=== PATIENT | female | born 1990 | race African-American/Black ===

== ENCOUNTER 2019-03-19 10:28 | Emergency (ER) | payer OTHER ==
[~2019-03-19] VITALS: Ht 162.6 cm; Wt 99.8 kg
[2019-03-19] MEDS ORDERED: SODIUM CHLORIDE 0.9% 1000ML 1,000 ML IV STA (10:37)
[2019-03-19] MEDS ORDERED: IBUPROFEN 600 MG TAB PO ONE (11:00)
[2019-03-19] MEDS ORDERED: ONDANSETRON HCL INJ 2MG/ML 2ML 2 MG/ML VIAL IV ONE (11:00)
[2019-03-19 11:30] LABS: PREGNANCY TEST, URINE NEGATIVE (NEGATIVE)
--- NOTE | 2019-03-19 12:01 | NUR ---
NO IV ACCESS OBTAINED OF YET
[2019-03-19 12:17] LABS: BASOPHILS % 0.4 % (0.0-1.0); EOSINOPHILS % 0.2 % (0.0-6.0); HEMATOCRIT 30.1 % (34.2-44.1); HEMOGLOBIN 8.8 g/dL (12.0-16.0); LYMPHOCYTES # (AUTO) 0.8 (1.0-3.2); LYMPHOCYTES % 13.6 % (18.0-39.1); MEAN CORPUSCULAR HEMOGLOBIN 19.2 pg (28-32); MEAN CORPUSCULAR HGB CONC 29.2 g/dL (31-35); MEAN CORPUSCULAR VOLUME 65.7 fL (81-99); MONOCYTES # (AUTO) 0.4 (0.2-0.8); MONOCYTES % 7.3 % (4.4-11.3); NEUTROPHILS # (AUTO) 4.3 (2.1-6.9); NEUTROPHILS % 78.1 % (38.7-80.0); PLATELET COUNT 348 x10e3/uL (140-360); RED BLOOD COUNT 4.58 x10e6/uL (3.6-5.1); RED CELL DISTRIBUTION WIDTH 17.7 % (11.7-14.4)
--- NOTE | 2019-03-19 12:37 | NUR ---
IV ACCESS OBTAINED AND MEDS GIVEN
[2019-03-19 12:53] LABS: ALANINE AMINOTRANSFERASE 10 IU/L (0-55); ALBUMIN 3.5 g/dL (3.5-5.0); ALBUMIN/GLOBULIN RATIO 0.8 (0.8-2.0); ALKALINE PHOSPHATASE 71 IU/L (40-150); AMYLASE 51 U/L (25-125); ANION GAP 11.9 mmol/L (8-16); BLOOD UREA NITROGEN 7 mg/dL (7-26); BUN/CREATININE RATIO 7 (6-25); CALCIUM 9.5 mg/dL (8.4-10.2); CARBON DIOXIDE 24 mmol/L (22-29); CHLORIDE 102 mmol/L (98-107); CREATININE, SERUM 0.97 mg/dL (0.57-1.11); EST GLOMERULAR FILTRATION RATE > 60 ML/MIN (60-); GLUCOSE 92 mg/dL (74-118); MAGNESIUM 2.1 MG/DL (1.3-2.1); POTASSIUM 3.9 mmol/L (3.5-5.1); SODIUM 134 mmol/L (136-145)
[2019-03-19 15:09] LABS: BILIRUBIN,URINE NEGATIVE (NEGATIVE); CLARITY,URINE SL CLOUDY (CLEAR); COLOR,URINE YELLOW (YELLOW); KETONES,URINE NEGATIVE (NEGATIVE); LEUKOCYTE ESTERASE ,URINE NEGATIVE (NEGATIVE); NITRITE,URINE NEGATIVE (NEGATIVE); PROTEIN,URINE DIPSTICK 1+ (NEGATIVE); URINE UROBILINOGEN 2 mg/dL (0.2 - 1)
[2019-03-19] MEDS ORDERED: AZITHROMYCIN 250 MG TAB PO ONE (15:15)
[2019-03-19] MEDS ORDERED: CEFTRIAXONE SOD 1 GM/NS 50 ML 50 ML IV ONE (15:15)
[2019-03-19 15:32] LABS: BACTERIA,URINE FEW /HPF; EPITHELIAL CELLS,URINE FEW /LPF
--- NOTE | 2019-03-19 15:36 | Diagnostic Imaging Report ---
Chest, 2 views, 03/19/2019. History: Fever and vomiting. Comparison: None available. Findings: The cardiomediastinal silhouette and pulmonary vasculature are within normal limits. The lungs are clear without evidence of consolidation or pleural effusion. There are no acute osseous or soft tissue abnormalities. Impression: No acute cardiopulmonary abnormality. Signed by: Noe Henson on 03/19/2019 3:33 PM
[2019-03-19] MEDS ORDERED: ZOFRAN4 MG PO (15:52)
[2019-03-19] MEDS ORDERED: ZOFRAN4 MG SL (15:52)
== END 2019-03-19 16:40 | disposition home or self-care (01) ==
LOC: ER 10:31
DX: R10.9 Unspecified abdominal pain (principal); R11.2 Nausea with vomiting, unspecified; R19.7 Diarrhea, unspecified; J45.909 Unspecified asthma, uncomplicated
CPT/HCPCS: 36415; 71046; 80053; 81001; 81025; 82150; 83735; 85025; 87086; 99284; J2405; J7030

== ENCOUNTER 2020-05-16 10:08 | Emergency (ER) | payer SELFPAY ==
[~2020-05-16] VITALS: Ht 162.6 cm; Wt 99.8 kg
[~2020-05-16 10:08] MED LIST: ZOFRAN4 MG PO; ZOFRAN4 MG SL
--- OUTSIDE RECORDS SUMMARY | 2020-05-16 10:25 | XMS REPORT | Continuity of Care Document ---
Author Author [facility] Organization [facility] Address [address] [place] [address] Phone Unavailable Care Team Providers Care Helper Maintenance Cleaning Name Role Phone NO, PCP PCP Unavailable JERED BARGER Attraf Unavailable Problems This patient has no known problems. Allergies, Adverse Reactions, Alerts Allergy Name Allergy Type Status Severity Reaction(s) Onset Date Inacti ve Date Treating Clinician Comments Source Penicillin Allergy to Substance Active Severe 2019-03-19 00:00:00 [facility] Medications Ordered Medication Name Filled Medication Name Start Date Stop Da te Current Medication? Ordering Clinician Indication Dosage Frequency Signature (SIG) Comments Components Source Ondansetron Hcl (Zofran*) 4 Mg Tablet Ondansetron Hcl (Zofra n*) 4 Mg Tablet 2019-03-19 00:00:00 Yes Lamont Galarza Furniture Refinisher 4 Every 4 Hours as needed for Nausea And Vomiting [facility] Ondansetron Hcl (Zofran*) 4 Mg Tablet Ondansetron Hcl (Zofra n*) 4 Mg Tablet 2019-03-19 00:00:00 Yes Lamont Galarza Furniture Refinisher 4 Every 4 Hours as needed for Nausea [facility] Procedures Procedure Date / Time Performed Performing Clinician [facility] e X-ray of chest, two views 2019-03-19 00:00:00 LAMONT GALARZA [facility] Encounters Start Date/Time End Date/Time Encounter Type Admission Type Attendi [facility] Facility Care Department Encounter ID Source 2019-03-19 10:31:00 2019-03-19 16:40:00 Departed Emergency Room [address] [facility] [id number] [facility] Results Test Description Test Time Test Comments Results Result Comments Source Urine WBC 2019-03-19 15:32:00 Test Item Urine WBC (test code = 5821-4) NONE 0-5 [facility] [id number] 15:32:00* Test Item Value Reference Range Interpretation Comments Urine RBC (test code = 27233-7) 6-10 0-5 H [facility] Njldrdki8515-52-65 15:32:00* Test Item Value Reference Range Interpretation Comments Urine Bacteria (test code = 28405-1) FEW NONE [facility] Epithelial Bzwdg0759-26-20 15:32:00 * Test Item Value Reference Range Interpretation Comments Urine Epithelial Cells (test code = 18096-7) FEW NONE [facility] 2 [id number] 15:32:00 [facility] [address] [address] Patient Name: ERIC WHITESIDE MR #: [id number] : 1990 Age/Sex: 28/F Req #: [id number] Adm Physician: Ordered by: LAMONT GALARZA MAINTENANCE OPERATOR Report #: [id number] Location: ER Room/Bed: Procedure: [id number] D X/CHEST 2 VIEWS Exam Date: 03/19/19 Exam Time: 1433 REPORT STATUS: Signed Chest, 2 v iews, 03/19/2019. History: Fever and vomiting. Comparison: None available. Findings: The cardiomediastinal silhouette and pulmonary vascul ature are within normal limits. The lungs are clear without evidence of consol idation or pleural effusion. There are no acute osseous or soft tissue abnorm alities. Impression: No acute cardiopulmonary abnormality. Signed by: Noe Henson on 03/19/2019 3:33 PM Dictated By: NOE HENSON MD El ectronically Signed By: NOE HENSON MD on 03/19/19 1533 Transcribed By: LEDY DE LA O on 03/19/19 1533 COPY TO: LAMONT GALARZA MAINTENANCE OPERATOR Urine Color 2019-03-19 15:16:00* Test Item Value Reference Range Interpretation Comments Urine Color (test code = 5778-6) YELLOW YELLOW [facility] Rajhtgz9027-29-25 15:16:00* Test Item Value Reference Range Interpretation Comments Urine Clarity (test code = 39138-8) SL CLOUDY CLEAR [facility] HospitalU[facility] Specific Cthuikg8373-21-19 15:16:00 * Test Item Value Reference Range Interpretation Comments Urine Specific Tye (test code = 5811-5) 1.020 1.010-1.02 5 [facility] [id number] 15:16:00* Test Item Value Reference Range Interpretation Comments Urine pH (test code = 64873-8) 7 5-7 [facility] Leukocyte Zjiadpjh9778-76-62 15:16:00* Test Item Value Reference Range Interpretation Comments Urine Leukocyte Esterase (test code = 52593-4) NEGATIVE NEGATIV E [facility] HospitalU[facility] Eqofjzz6277-86-34 15:16:00* Test Item Value Reference Range Interpretation Comments Urine Nitrite (test code = 71918-3) NEGATIVE NEGATIVE [facility] HospitalU[facility] Esrdilo4379-43-18 15:16:00* Test Item Value Reference Range Interpretation Comments Urine Protein (test code = 89929-3) 1+ NEGATIVE H [facility] HospitalU[facility] Glucose (UA)2019-03-19 15:16:00* Test Item Value Reference Range Interpretation Comments Urine Glucose (UA) (test code = 28539-5) NEGATIVE NEGATIVE [facility] Xxajxhc8913-67-27 15:16:00* Test Item Value Reference Range Interpretation Comments Urine Ketones (test code = 85337-7) NEGATIVE NEGATIVE [facility] HospitalU[facility] Oklxinkhxtss8515-16-40 15:16:00* Test Item Value Reference Range Interpretation Comments Urine Urobilinogen (test code = 81269-7) 2 0.2-1 [facility] HospitalU[facility] Pbkkukkcj5582-15-51 15:16:00* Test Item Value Reference Range Interpretation Comments Urine Bilirubin (test code = 1977-8) NEGATIVE NEGATIVE [facility] HospitalU[facility] Qidvt9292-02-45 15:16:00* Test Item Value Reference Range Interpretation Comments Urine Blood (test code = 33455-8) 3+ NEGATIVE [facility] Jbbzs5415-29-00 12:53:00* Test Item Value Reference Range Interpretation Comments Sodium Level (test code = 2951-2) 134 136-145 L [facility] HospitalPotassium Kyvvc4629-34-72 12:53:00* Test Item Value Reference Range Interpretation Comments Potassium Level (test code = 2823-3) 3.9 3.5-5.1 [facility] HospitalChloride Kxtjr5839-56-86 12:53:00* Test Item Value Reference Range Interpretation Comments Chloride Level (test code = 2075-0) 102 98-107 [facility] HospitalCarbon Dioxide Mhwso6389-51-18 12:53:00* Test Item Value Reference Range Interpretation Comments Carbon Dioxide Level (test code = 2028-9) 24 22-29 [facility] HospitalAnion Jao0297-39-82 12:53:00* Test Item Value Reference Range Interpretation Comments Anion Gap (test code = 21565-5) 11.9 8-16 [facility] HospitalBlood Urea Qkurvoff0172-61-86 12:53:00* Test Item Value Reference Range Interpretation Comments Blood Urea Nitrogen (test code = 3094-0) 7 7-26 [facility] HospitalCreatinine2019-09-17 12:53:00* Test Item Value Reference Range Interpretation Comments Creatinine (test code = 2160-0) 0.97 0.57-1.11 [facility] HospitalBUN/Creatinine Voxnz4320-85-04 12:53:00* Test Item Value Reference Range Interpretation Comments BUN/Creatinine Ratio (test code = 3097-3) 7 6-25 [facility] HospitalEstimat Glomerular Filtration Rate 2019-03-19 12:53:00* Test Item Value Reference Range Interpretation Comments Estimat Glomerular Filtration Rate (test code = 910554892) > 60 >60 Ranges were taken from the National Kidney Disease Education Program and the [facility] [employer] literature.Reference ranges:60 or greater: Uggpfn15-45 ( for 3 consecutive months): Chronic kidney disease 15 or less: Kidney failureHarris Health System Lyndon B. Johnson HospitalGlucose Itdbf8574-38-83 12:53:00* Test Item Value Reference Range Interpretation Comments Glucose Level (test code = LKK1278) 92 74-118 [facility] HospitalCalcium Qfrva3757-77-63 12:53:00* Test Item Value Reference Range Interpretation Comments Calcium Level (test code = 21538-3) 9.5 8.4-10.2 [facility] HospitalMagnesium Idten8270-47-60 12:53:00* Test Item Value Reference Range Interpretation Comments Magnesium Level (test code = 86794-1) 2.1 1.3-2.1 [facility] HospitalTotal Wopauudmi0574-27-07 12:53:00* Test Item Value Reference Range Interpretation Comments Total Bilirubin (test code = 1975-2) 0.4 0.2-1.2 [facility] HospitalAspartate Amino Transf (AST/SGOT) 2019-03-19 12:53:00* Test Item Value Reference Range Interpretation Comments Aspartate Amino Transf (AST/SGOT) (test code = Aspartate Amino Transf (AST/SGOT)) 17 5-34 [facility] HospitalAlanine Aminotransferase (ALT/SGPT) 2019-03-19 12:53:00* Test Item Value Reference Range Interpretation Comments Alanine Aminotransferase (ALT/SGPT) (test code = 1742-6) 10 0-55 [facility] HospitalTotal Fdpdbfu2816-63-95 12:53:00* Test Item Value Reference Range Interpretation Comments Total Protein (test code = 2885-2) 7.9 6.5-8.1 [facility] HospitalAlbumin2019-09-17 12:53:00* Test Item Value Reference Range Interpretation Comments Albumin (test code = 1751-7) 3.5 3.5-5.0 [facility] HospitalGlobulin2019-09-17 12:53:00* Test Item Value Reference Range Interpretation Comments Globulin (test code = 00580-7) 4.4 2.3-3.5 H [facility] HospitalAlbumin/Globulin Xlyhz9403-63-58 12:53:00 * Test Item Value Reference Range Interpretation Comments Albumin/Globulin Ratio (test code = 1759-0) 0.8 0.8-2.0 [facility] HospitalAlkaline Kteipbuwled1887-80-62 12:53:00* Test Item Value Reference Range Interpretation Comments Alkaline Phosphatase (test code = 6768-6) 71 40-150 [facility] HospitalAmylase Rgbmk0365-05-30 12:53:00* Test Item Value Reference Range Interpretation Comments Amylase Level (test code = 1798-8) 51 25-125 [facility] HospitalWhite Blood Hdalx8668-08-50 12:23:00* Test Item Value Reference Range Interpretation Comments White Blood Count (test code = 6690-2) 5.50 4.8-10.8 [facility] HospitalRed Blood Iktlg4246-72-31 12:23:00* Test Item Value Reference Range Interpretation Comments Red Blood Count (test code = 789-8) 4.58 3.6-5.1 [facility] HospitalHemoglobin2019-09-17 12:23:00* Test Item Value Reference Range Interpretation Comments Hemoglobin (test code = 53212-5) 8.8 12.0-16.0 L [facility] HospitalHematocrit2019-09-17 12:23:00* Test Item Value Reference Range Interpretation Comments Hematocrit (test code = 4544-3) 30.1 34.2-44.1 L [facility] HospitalMean Corpuscular Crscjs0994-93-91 12:23:00* Test Item Value Reference Range Interpretation Comments Mean Corpuscular Volume (test code = 787-2) 65.7 81-99 L [facility] HospitalMean Corpuscular Mrgjcmygzf6319-30-74 12:23:00* Test Item Value Reference Range Interpretation Comments Mean Corpuscular Hemoglobin (test code = 785-6) 19.2 28-32 L [facility] HospitalMean Corpuscular Hemoglobin Concent 2019-03-19 12:23:00* Test Item Value Reference Range Interpretation Comments Mean Corpuscular Hemoglobin Concent (test code = 786-4) 29.2 31-35 L [facility] HospitalRed Cell Distribution Flifb2212-94-75 12:23:00* Test Item Value Reference Range Interpretation Comments Red Cell Distribution Width (test code = 29463-8) 17.7 11.7 -14.4 H [facility] HospitalPlatelet Wlhvp1520-96-46 12:23:00* Test Item Value Reference Range Interpretation Comments Platelet Count (test code = 777-3) 348 140-360 [facility] HospitalNeutrophils (%) (Auto)2019-03-19 12:23:00 * Test Item Value Reference Range Interpretation Comments Neutrophils (%) (Auto) (test code = 50933-9) 78.1 38.7-80.0 [facility] HospitalLymphocytes (%) (Auto)2019-03-19 12:23:00 * Test Item Value Reference Range Interpretation Comments Lymphocytes (%) (Auto) (test code = 736-9) 13.6 18.0-39.1 L [facility] HospitalMonocytes (%) (Auto)2019-03-19 12:23:00* Test Item Value Reference Range Interpretation Comments Monocytes (%) (Auto) (test code = 5905-5) 7.3 4.4-11.3 [facility] HospitalEosinophils (%) (Auto)2019-03-19 12:23:00 * Test Item Value Reference Range Interpretation Comments Eosinophils (%) (Auto) (test code = 713-8) 0.2 0.0-6.0 [facility] HospitalBasophils (%) (Auto)2019-03-19 12:23:00* Test Item Value Reference Range Interpretation Comments Basophils (%) (Auto) (test code = 706-2) 0.4 0.0-1.0 [facility] HospitalIM GRANULOCYTES %2019-03-19 12:23:00* Test Item Value Reference Range Interpretation Comments IM GRANULOCYTES % (test code = IM GRANULOCYTES %) 0.4 0.0- 1.0 [facility] HospitalNeutrophils # (Auto)2019-03-19 12:23:00* Test Item Value Reference Range Interpretation Comments Neutrophils # (Auto) (test code = 751-8) 4.3 2.1-6.9 [facility] HospitalLymphocytes # (Auto)2019-03-19 12:23:00* Test Item Value Reference Range Interpretation Comments Lymphocytes # (Auto) (test code = 52894-5) 0.8 1.0-3.2 L [facility] HospitalMonocytes # (Auto)2019-03-19 12:23:00* Test Item Value Reference Range Interpretation Comments Monocytes # (Auto) (test code = 742-7) 0.4 0.2-0.8 [facility] HospitalEosinophils # (Auto)2019-03-19 12:23:00* Test Item Value Reference Range Interpretation Comments Eosinophils # (Auto) (test code = 711-2) 0.0 0.0-0.4 [facility] HospitalBasophils # (Auto)2019-03-19 12:23:00* Test Item Value Reference Range Interpretation Comments Basophils # (Auto) (test code = 704-7) 0.0 0.0-0.1 [facility] HospitalAbsolute Immature Granulocyte (auto 2019-03-19 12:23:00* Test Item Value Reference Range Interpretation Comments Absolute Immature Granulocyte (auto (leonel t code = Absolute Immature Granulocyte (auto) 0.02 0-0.1 [facility] HospitalUrine Vjwt2421-97-26 11:30:00* Test Item Value Reference Range Interpretation Comments Urine Test (test code = 2106-3) NEGATIVE NEGATIVE [facility]
[2020-05-16 10:33] LABS: BASOPHILS # (AUTO) 0.1 (0.0-0.1); BASOPHILS % 0.5 % (0.0-1.0); EOSINOPHILS # (AUTO) 0.1 (0.0-0.4); EOSINOPHILS % 0.8 % (0.0-6.0); HEMATOCRIT 30.1 % (34.2-44.1); HEMOGLOBIN 8.4 g/dL (12.0-16.0); LYMPHOCYTES # (AUTO) 2.1 (1.0-3.2); MEAN CORPUSCULAR HEMOGLOBIN 18.4 pg (28-32); MEAN CORPUSCULAR HGB CONC 27.9 g/dL (31-35); MONOCYTES % 8.9 % (4.4-11.3); NEUTROPHILS # (AUTO) 7.6 (2.1-6.9); NEUTROPHILS % 70.2 % (38.7-80.0); PLATELET COUNT 305 x10e3/uL (140-360); RED BLOOD COUNT 4.56 x10e6/uL (3.6-5.1); RED CELL DISTRIBUTION WIDTH 18.3 % (11.7-14.4)
[2020-05-16 10:40] LABS: CLARITY,URINE HAZY (CLEAR); COLOR,URINE YELLOW (YELLOW)
[2020-05-16 10:41] LABS: BILIRUBIN,URINE NEGATIVE (NEGATIVE); KETONES,URINE 1+ (NEGATIVE); LEUKOCYTE ESTERASE ,URINE NEGATIVE (NEGATIVE); NITRITE,URINE NEGATIVE (NEGATIVE); PROTEIN,URINE DIPSTICK 1+ (NEGATIVE); URINE UROBILINOGEN 0.2 mg/dL (0.2 - 1)
--- NOTE | 2020-05-16 10:43 | NUR ---
BEDSIDE ULTRASOUND BY MD D/T LARGE FIRM ABD PALPABLE MASS NOTED. NO FETUS NOTED, CONCERN FOR MASS PER MD, CT ORDERED STAT..
[2020-05-16] MEDS ORDERED: SODIUM CHLORIDE 0.9% 1000ML 1,000 ML IV STA (10:44)
[2020-05-16 10:47] LABS: AMORPHOUS SEDIMENT,URINE FEW (FEW); BACTERIA,URINE FEW /HPF; EPITHELIAL CELLS,URINE FEW /LPF; MUCUS,URINE FEW (RARE); RBC,URINE 0-5 /HPF (0-5); WBC,URINE (MAN) 0-5 /HPF (0-5)
[2020-05-16 10:48] LABS: ALANINE AMINOTRANSFERASE 10 IU/L (0-55); ALBUMIN 3.6 g/dL (3.5-5.0); ALBUMIN/GLOBULIN RATIO 0.8 (0.8-2.0); ALKALINE PHOSPHATASE 55 IU/L (40-150); ANION GAP 13.8 mmol/L (8-16); BLOOD UREA NITROGEN 8 mg/dL (7-26); BUN/CREATININE RATIO 10 (6-25); CALCIUM 9.3 mg/dL (8.4-10.2); CARBON DIOXIDE 22 mmol/L (22-29); CHLORIDE 104 mmol/L (98-107); CREATININE, SERUM 0.79 mg/dL (0.57-1.11); EST GLOMERULAR FILTRATION RATE > 60 ML/MIN (60-); GLUCOSE 94 mg/dL (74-118); POTASSIUM 3.8 mmol/L (3.5-5.1); SODIUM 136 mmol/L (136-145)
--- NOTE | 2020-05-16 11:06 | Emergency Department Note ---
History of Present Illnes History of Present Illness Chief Complaint: Genitourinary History of Present Illness This is a 29 year old female PELVIC PAIN X 3 DAYS. AAOX4. AMBULATORY. NO DISTRESS AT TIME OF TRIAGE. LMP 2 WEEKS AGO, HAS HEAVY PERIODS. AFTER MY PHYSICAL EXAM SHE ALSO REPORTS FEELING FIRM MASS WHICH HAS BEEN GROWING FOR ~1 YEAR - SOME DOCTOR TOLD HER IT WAS JUST MUSCLES Historian: Patient, Family Member Arrival Mode: Car Business Specialist Required: No Onset (how long ago): day(s) Location: PELVIC Quality: PAIN Radiation: Reports non-radiation Severity: mild Onset quality: gradual Timing of current episode: intermittent Progression: waxing and waning Chronicity: new Context: Denies recent illness Relieving factors: none Exacerbating factors: none Associated symptoms: Reports denies other symptoms Past Medical/Family History Physician Review I have reviewed the patient's past medical and family history. Any updates have been documented here. Past Medical History Recent Fever: No Clinical Suspicion of Infectio: Yes New/Unexplained Change in Ment: No Past Medical History: Asthma Past Surgical History: None Social History Smoking Cessation: Never Smoker Counseling Performed: No Alcohol Use: None Any Illegal Drug Use: No TB Exposure/Symptoms: No Physically hurt or threatened: No Family History Family history of heart diseas: No Other Last Tetanus: UNKNOWN Any Pre-Existing Lines (PICC,: No Review of Systems Review of Systems Constitutional: Reports no symptoms EENTM: Reports no symptoms Cardiovascular: Reports no symptoms Respiratory: Reports no symptoms Gastrointestinal: Reports no symptoms Genitourinary: Reports as per HPI Musculoskeletal: Reports no symptoms Integumentary: Reports no symptoms Neurological: Reports no symptoms Psychological: Reports no symptoms Endocrine: Reports no symptoms Hematological/Lymphatic: Reports no symptoms Physical Exam Related Data Allergies: Coded Allergies: Penicillins (Verified Allergy, Severe, 03/19/19) Triage Vital Signs Vital Signs Date Time Temp Pulse Resp B/P (MAP) Pulse Ox O2 Delivery O2 Flow Rate FiO2 05/16/20 10:14 99.1 95 16 118/83 100 Room Air Vital signs reviewed: Yes Physical Exam CONSTITUTIONAL Constitutional: Present well-developed, Present well-nourished HENT HENT: Present normocephalic, Present atraumatic, Present oropharynx clear/moist, Present nose normal HENT L/R: Present left ext ear normal, Present right ext ear normal EYES Eyes: Reports PERRL, Reports conjunctivae normal NECK Neck: Present ROM normal PULMONARY Pulmonary: Present effort normal, Present breath sounds normal CARDIOVASCULAR Cardiovascular: Present regular rhythm, Present heart sounds normal, Present capillary refill normal, Present normal rate GASTROINTESTINAL Abdominal: Present soft, Present nontender, Present bowel sounds normal, Present mass (LARGE ~20 CM MASS LOWER MID PELVIS, FIRM, NON-MOBILE/NON-TENDER/NON-PULSATILE - I DID A QUICK U/S - NOT A FETUS) GENITOURINARY Genitourinary: Present exam deferred SKIN Skin: Present warm, Present dry MUSCULOSKELETAL Musculoskeletal: Present ROM normal NEUROLOGICAL Neurological: Present alert, Present oriented x 3, Present no gross motor or sensory deficits PSYCHOLOGICAL Psychological: Present mood/affect normal, Present judgement normal Results Laboratory Result Diagram: 05/16/20 1020 05/16/20 1020 Laboratory Laboratory Tests Test 05/16/20 10:20 White Blood Count 10.78 x10e3/uL (4.8-10.8) Red Blood Count 4.56 x10e6/uL (3.6-5.1) Hemoglobin 8.4 g/dL (12.0-16.0) Hematocrit 30.1 % (34.2-44.1) Mean Corpuscular Volume 66.0 fL (81-99) Mean Corpuscular Hemoglobin 18.4 pg (28-32) Mean Corpuscular Hemoglobin Concent 27.9 g/dL (31-35) Red Cell Distribution Width 18.3 % (11.7-14.4) Platelet Count 305 x10e3/uL (140-360) Neutrophils (%) (Auto) 70.2 % (38.7-80.0) Lymphocytes (%) (Auto) 19.0 % (18.0-39.1) Monocytes (%) (Auto) 8.9 % (4.4-11.3) Eosinophils (%) (Auto) 0.8 % (0.0-6.0) Basophils (%) (Auto) 0.5 % (0.0-1.0) Neutrophils # (Auto) 7.6 (2.1-6.9) Lymphocytes # (Auto) 2.1 (1.0-3.2) Monocytes # (Auto) 1.0 (0.2-0.8) Eosinophils # (Auto) 0.1 (0.0-0.4) Basophils # (Auto) 0.1 (0.0-0.1) Absolute Immature Granulocyte (auto 0.06 x10e3/uL (0-0.1) Urine Color Yellow (YELLOW) Urine Clarity Hazy (CLEAR) Urine pH 5.5 (5 - 7) Urine Specific [place] >=1.030 (1.010-1.025) Urine Protein 1+ (NEGATIVE) Urine Glucose (UA) Negative (NEGATIVE) Urine Ketones 1+ (NEGATIVE) Urine Blood Small (NEGATIVE) Urine Nitrite Negative (NEGATIVE) Urine Bilirubin Negative (NEGATIVE) Urine Urobilinogen 0.2 mg/dL (0.2 - 1) Urine Leukocyte Esterase Negative (NEGATIVE) Urine RBC 0-5 /HPF (0-5) Urine WBC 0-5 /HPF (0-5) Urine Epithelial Cells Few /LPF (NONE) Urine Amorphous Sediment Few (FEW) Urine Bacteria Few /HPF (NONE) Urine Mucus Few (RARE) Sodium Level 136 mmol/L (136-145) Potassium Level 3.8 mmol/L (3.5-5.1) Chloride Level 104 mmol/L (98-107) Carbon Dioxide Level 22 mmol/L (22-29) Anion Gap 13.8 mmol/L (8-16) Blood Urea Nitrogen 8 mg/dL (7-26) Creatinine 0.79 mg/dL (0.57-1.11) Estimat Glomerular Filtration Rate > 60 ML/MIN (60-) BUN/Creatinine Ratio 10 (6-25) Glucose Level 94 mg/dL (74-118) Calcium Level 9.3 mg/dL (8.4-10.2) Total Bilirubin 0.4 mg/dL (0.2-1.2) Aspartate Amino Transf (AST/SGOT) 16 IU/L (5-34) Alanine Aminotransferase (ALT/SGPT) 10 IU/L (0-55) Alkaline Phosphatase 55 IU/L (40-150) Total Protein 8.3 g/dL (6.5-8.1) Albumin 3.6 g/dL (3.5-5.0) Globulin 4.7 g/dL (2.3-3.5) Albumin/Globulin Ratio 0.8 (0.8-2.0) Human Chorionic Gonadotropin, Qual Negative (NEGATIVE) Lab results reviewed: Yes Imaging Imaging results reviewed: Yes Impressions EXAM: CT Abdomen and Pelvis WITH contrast INDICATION: PELVIC MASS COMPARISON: None. TECHNIQUE: Abdomen and pelvis were scanned utilizing a multidetector helical scanner from the lung base to the pubic symphysis after administration of IV contrast. Coronal and sagittal reformations were obtained. Routine protocol was performed. Scan was performed when during portal venous phase. IV CONTRAST: 100 mL of Isovue 370 ORAL CONTRAST: None COMPLICATIONS: None RADIATION DOSE: Total DLP: 783 mGy*cm Estimated effective dose: (DLP x 0.015 x size factor) mSv CTDIvol has been reviewed. It is below the limits set by the Radiation Protocol Committee (RPC). Dose modulation, iterative reconstruction, and/or weight based adjustment of the mA/kV was utilized to reduce the radiation dose to as low as reasonably achievable. FINDINGS: LINES and TUBES: None. LOWER THORAX: There is bibasilar atelectasis. HEPATOBILIARY: There are multiple scattered too small to characterize hypodensities in the liver, likely benign. No biliary ductal dilation. GALLBLADDER: No radio-opaque stones or sludge. No wall thickening. SPLEEN: No splenomegaly. PANCREAS: No focal masses or ductal dilatation. ADRENALS: No adrenal nodules KIDNEYS/URETERS: Kidneys enhance symmetrically. No hydronephrosis. No cystic or solid mass lesions. No stones. GI TRACT: No abnormal distention, wall thickening, or evidence of bowel obstruction. Appendix is normal. PELVIC ORGANS/BLADDER: There is a large heterogeneous enhancing pelvic mass which measures approximately 10 x 14 x 16 cm (AP, transverse, superior-inferior). The uterus and right ovary are not clearly discernible from this pelvic mass. The left ovary is identified in series 2 image 72. LYMPH NODES: There are multiple prominent para-aortic lymph nodes, none of which meet size criteria for pathologic enlargement. No lymphadenopathy. VESSELS: Unremarkable. PERITONEUM / RETROPERITONEUM: No free air or fluid. BONES: The bones are normal for age with no suspicious osteolytic or osteoblastic lesions. SOFT TISSUES: Unremarkable. IMPRESSION: 1. Large heterogeneously enhancing pelvic mass which measures approximately 10 x 14 x 16 cm and not clearly discernible from the uterus and right ovary. Differential considerations includes large uterine mass versus ovarian mass. 2. Recommend further evaluation with dedicated pelvic ultrasound to identify the ovaries, pelvic MRI for further characterization of this pelvic mass and [employer] consultation for further evaluation and management. Signed by: Roger Rico MD on 05/16/2020 12:15 PM Assessment & Plan Medical Decision Making MDM PT C/O PELVIC PAIN, HAS LARGE PELVIC MASS ON EXAM BUT MINIMAL TTP - CHECK CBC, CHEM, UA/CX, PREG, CT ABD/PELVIS IF NEG PREG TEST - EVAL FOR , UTERINE FIBROID/TUMER, OVARIAN MASS, UTI Reassessment Reassessment PT WITHOUT PAIN - DC HOME, F/U SUPER[employer] DR DOWNEY Assessment & Plan Final Impression: (1) Pelvic mass Depart Disposition: HOME, SELF-CARE Last Vital Signs Date Time Temp Pulse Resp B/P (MAP) Pulse Ox O2 Delivery O2 Flow Rate FiO2 05/16/20 10:14 99.1 95 16 118/83 100 Room Air Home Meds Active Scripts Ondansetron Hcl* (ZOFRAN*) 4 Mg Tablet, 4 MG SL Q4HR PRN for NAUSEA, #14 TAB Prov:FANTASMA GALARZA REST ROOM ATTENDANT 03/19/19 Ondansetron Hcl* (ZOFRAN*) 4 Mg Tablet, 4 MG PO Q4HR PRN for NAUSEA AND VOMITING, #14 Prov:FANTASMA GALARZA REST ROOM ATTENDANT 03/19/19 Medications in the ED Sodium Chloride 1,000 ml @ 0 mls/hr Q0M STAT IV ; Start 05/16/20 at 10:44; Stop 05/16/20 at 10:45 KHRIS TERRELL MD May 16, 2020 11:06
[2020-05-16 11:47] LABS: PROTHROMBIN TIME 13.7 seconds (11.9-14.5)
[2020-05-16 11:48] LABS: PARTIAL THROMBOPLASTIN TIME 34.8 seconds (23.8-35.5)
--- NOTE | 2020-05-16 12:18 | Diagnostic Imaging Report ---
EXAM: CT Abdomen and Pelvis WITH contrast INDICATION: PELVIC MASS COMPARISON: None. TECHNIQUE: Abdomen and pelvis were scanned utilizing a multidetector helical scanner from the lung base to the pubic symphysis after administration of IV contrast. Coronal and sagittal reformations were obtained. Routine protocol was performed. Scan was performed when during portal venous phase. IV CONTRAST: 100 mL of Isovue 370 ORAL CONTRAST: None COMPLICATIONS: None RADIATION DOSE: Total DLP: 783 mGy*cm Estimated effective dose: (DLP x 0.015 x size factor) mSv CTDIvol has been reviewed. It is below the limits set by the Radiation Protocol Committee (RPC). Dose modulation, iterative reconstruction, and/or weight based adjustment of the mA/kV was utilized to reduce the radiation dose to as low as reasonably achievable. FINDINGS: LINES and TUBES: None. LOWER THORAX: There is bibasilar atelectasis. HEPATOBILIARY: There are multiple scattered too small to characterize hypodensities in the liver, likely benign. No biliary ductal dilation. GALLBLADDER: No radio-opaque stones or sludge. No wall thickening. SPLEEN: No splenomegaly. PANCREAS: No focal masses or ductal dilatation. ADRENALS: No adrenal nodules KIDNEYS/URETERS: Kidneys enhance symmetrically. No hydronephrosis. No cystic or solid mass lesions. No stones. GI TRACT: No abnormal distention, wall thickening, or evidence of bowel obstruction. Appendix is normal. PELVIC ORGANS/BLADDER: There is a large heterogeneous enhancing pelvic mass which measures approximately 10 x 14 x 16 cm (AP, transverse, superior-inferior). The uterus and right ovary are not clearly discernible from this pelvic mass. The left ovary is identified in series 2 image 72. LYMPH NODES: There are multiple prominent para-aortic lymph nodes, none of which meet size criteria for pathologic enlargement. No lymphadenopathy. VESSELS: Unremarkable. PERITONEUM / RETROPERITONEUM: No free air or fluid. BONES: The bones are normal for age with no suspicious osteolytic or osteoblastic lesions. SOFT TISSUES: Unremarkable. IMPRESSION: 1. Large heterogeneously enhancing pelvic mass which measures approximately 10 x 14 x 16 cm and not clearly discernible from the uterus and right ovary. Differential considerations includes large uterine mass versus ovarian mass. 2. Recommend further evaluation with dedicated pelvic ultrasound to identify the ovaries, pelvic MRI for further characterization of this pelvic mass and RECONDITIONER consultation for further evaluation and management. Signed by: Roger Rico MD on 05/16/2020 12:15 PM
== END 2020-05-16 13:08 | disposition home or self-care (01) ==
LOC: ER 10:15
DX: R19.00 Intra-abdominal and pelvic swelling, mass and lump, unspecified site (principal); R10.2 Pelvic and perineal pain; J45.909 Unspecified asthma, uncomplicated
CPT/HCPCS: 36415; 74177; 80053; 81001; 84702; 85025; 85610; 85730; 87086; 99284; J7030